=== PATIENT | male | born 1995 | race Two or more races ===

== ENCOUNTER 2022-01-29 18:36 | Emergency (ER) | payer OTHER ==
[~2022-01-29] VITALS: Ht 182.9 cm; Wt 72.1 kg
--- NOTE | 2022-01-29 19:09 | NUR ---
CAME IN FOR LOWER BACK PAIN SINCE THIS MORNING,NO TRAUMA. TO ER BED 12, HOOKED TO MONITOR, CHANGED TO HOSP GOWN, WARM BLANKET PROVIDED. AWAITING MD KAM
[2022-01-29] MEDS ORDERED: KETOROLAC TROMETHAMINE 15 MG/ML VIAL ONE (19:47)
[2022-01-29] MEDS ORDERED: MORPHINE SULFATE INJ 4 MG/ML DISP.SYRIN ONE (19:47)
[2022-01-29] MEDS ORDERED: ONDANSETRON HCL/PF 4 MG/2 ML VIAL ONE (19:47)
[2022-01-29] MEDS ORDERED: IV NS 0.9% 1,000 ML BAG IV ONE ×2 (20:00)
[2022-01-29] MEDS ORDERED: ONDANSETRON HCL/PF 4 MG/2 ML VIAL IVP ONE (20:00)
[2022-01-29] MEDS ORDERED: KETOROLAC TROMETHAMINE INJ 30 MG/ML VIAL IV ONE (20:00)
[2022-01-29] MEDS ORDERED: MORPHINE SULFATE INJ 2 MG/ML DISP.SYRIN IV ONE (20:00)
[2022-01-29 20:01] VITALS: BP 132/71
--- NOTE | 2022-01-29 20:10 | NUR ---
COVID SWAB COLLECTED SENT TO LAB
--- NOTE | 2022-01-29 20:14 | NUR ---
URINE COLLECTED AND SENT TO LAB
[2022-01-29 20:15] LABS: HEMATOCRIT 41 % (39-51); HEMOGLOBIN 14.2 g/dL (13.5-17.5); LYMPHOCYTES % (AUTO) 6.7 % (20.0-44.0); MEAN CORPUSCULAR HGB CONC 35 g/dl (31.0-36.0); MEAN CORPUSCULAR VOLUME 89 fL (80-96); MONOCYTES % (AUTO) 11.3 % (2.0-12.0); NEUTROPHILS % (AUTO) 81.7 % (43.0-81.0); PLATELET COUNT (AUTO) 159 K/uL (150-450); WHITE BLOOD COUNT (AUTO) 8.1 K/uL (4.3-11.0)
[2022-01-29 20:16] LABS: BASOPHILS % (AUTO) 0.2 % (0.0-2.0); EOSINOPHILS % (AUTO) 0.1 % (0.0-6.0); LYMPHOCYTES # (AUTO) 0.5 K/uL (0.8-4.8); MONOCYTES # (AUTO) 0.9 K/uL (0.1-1.30); NEUTROPHILS # (AUTO) 6.6 K/uL (1.8-8.9)
[2022-01-29 20:32] LABS: ALANINE AMINOTRANSFERASE 21 U/L (12-78); ALBUMIN 4.1 g/dL (3.4-5.0); ALKALINE PHOSPHATASE 46 U/L (46-116); ASPARTATE AMINOTRANSFERASE 20 U/L (15-37); BILIRUBIN,DIRECT 0.1 mg/dL (0.0-0.2); BILIRUBIN,TOTAL 0.5 mg/dL (0.2-1.0); CALCIUM, SERUM 9.2 mg/dL (8.5-10.1); CARBON DIOXIDE 20 mmol/L (21-32); CHLORIDE 104 mmol/L (98-107); CREATININE 1.2 mg/dL (0.6-1.3); GLUCOSE 101 mg/dL (74-106); POTASSIUM 3.3 mmol/L (3.5-5.1); SODIUM SERUM 135 mmol/L (136-145); TOTAL PROTEIN, SERUM 7.2 g/dL (6.4-8.2); UREA NITROGEN, BLOOD 16 mg/dL (7-18)
--- NOTE | 2022-01-29 20:40 | NUR ---
[facility]
--- NOTE | 2022-01-29 20:41 | NUR ---
LACTIC ACID 2.1
[2022-01-29] MEDS ORDERED: POTASSIUM CHLORIDE 20 MEQ TAB.PRT.SR PO ONE ×2 (21:00→21:14)
[2022-01-29 21:03] LABS: BILIRUBIN,URINE NEGATIVE (NEGATIVE); COLOR,URINE YELLOW (YELLOW); LEUKOCYTE ESTERASE ,URINE NEGATIVE (NEGATIVE); NITRITE, URINE NEGATIVE (NEGATIVE); PH,URINE 7.5 (5.0-8.0); PROTEIN,URINE NEGATIVE (NEGATIVE); UGLUCOSE NEGATIVE (NEGATIVE); UROBILINOGEN,URINE 0.2 EU/dL (0.2)
[2022-01-29 21:08] LABS: BACTERIA,URINE None seen /HPF (None Seen); RBC,URINE 0-2 /HPF (0-2); SQUAMOUS EPITHELIAL CELL,UR 0-2 /HPF (None Seen); WBC,URINE 0-2 /HPF (0-3)
[2022-01-29] MEDS ORDERED: ACETAMINOPHEN ES 500 MG TABLET ONE (21:29)
[2022-01-29] MEDS ORDERED: ACETAMINOPHEN 325 MG TABLET PO ONE (21:30)
[2022-01-29] MEDS ORDERED: CEFTRIAXONE 1GM BAG (ER ONLY) 1 GM/50 ML PIGGYBACK IV ONE (21:30)
[2022-01-29] MEDS ORDERED: CEFTRIAXONE 1GM BAG (ER ONLY) 50 ML IV ONE (21:32)
--- NOTE | 2022-01-29 21:49 | NUR ---
CRITICAL LAB REPORTED COVID POSITIVE
[2022-01-29] MEDS ORDERED: DIAZEPAM 5 MG TABLET ONE (21:52)
[2022-01-29] MEDS ORDERED: DIAZEPAM 5 MG TABLET PO ONE (22:00)
[2022-01-29] MEDS ORDERED: CYCL10TA9 PO (22:11)
[2022-01-29] MEDS ORDERED: IBUP-1955 PO (22:11)
--- NOTE | 2022-01-29 22:44 | NUR ---
Patient discharged to home in stable condition. Written and verbal after care instructions given. Patient verbalizes understanding of instruction.
== END 2022-01-29 22:45 | disposition home or self-care (01) ==
LOC: ER 18:45
DX: A41.89 Other specified sepsis (principal); U07.1 COVID-19; M79.10 Myalgia, unspecified site; M54.50 Low back pain, unspecified; R79.82 Elevated C-reactive protein (CRP); E87.6 Hypokalemia; R82.4 Acetonuria
CPT/HCPCS: 36415; 71045; 74176; 80048; 80076; 81001; 83605; 84145; 85025; 85652; 86140; 87040 ×2; 87426; 87804; 96361; 96365; 96375; 99285; C9803; J0696; J1885; J2270; J2405; J7030 ×2